=== PATIENT | male | born 2000 | race Caucasian/White ===

== ENCOUNTER 2019-12-09 20:24 | Emergency (ER) | payer OTHER ==
[~2019-12-09] VITALS: Ht 180.3 cm; Wt 74.8 kg
[~2019-12-09 20:24] MED LIST: CHLORDIAZEPOXID25 MG PO; KEPPRA500 MG PO; METHYLPHENIDATE54 MG PO; ONDANSETRON ODT8 MG PO
--- OUTSIDE RECORDS SUMMARY | 2019-12-09 20:26 | XMS ---
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 Care History Medical/Surgical 07/24/2018 [facility] - PATIENT TO ESTABLISH CARE WITH DR TURNER ON 08/26/18. - Patient is currently established with [facility]. If patient is seen in the ED during business hours. Please contact CHWs at [facility]. Care Recommendation: This patient has had 5 or more Emergency Department visits in the last 12 months.\T\nbsp; Patient requires education on the scope and purpose of the ED as an acute care provider not a Primary Care Provider and should not be utilized for chronic conditions.\T\nbsp; These are guidelines and the provider should exercise clinical judgment when providing care. E.D. VISIT COUNT (12 MO.) 1 MONSE Young TOTAL 1 NOTE: Visits indicate total known visits. ED/UCC VISIT TRACKING (12 MO.) 12/09/2019 20:24 [facility] [place] TYPE: Emergency COMPLAINT: - HEAD WOUND INPATIENT VISIT TRACKING (12 MO.) No inpatient visits to display in this time frame [email or web address]
[2019-12-09] MEDS ORDERED: CONCERTA18 MG PO (20:38)
== END 2019-12-09 21:09 | disposition home or self-care (01) ==
LOC: ED 20:24
DX: S01.01XA Laceration without foreign body of scalp, initial encounter (principal); F90.9 Attention-deficit hyperactivity disorder, unspecified type; F17.200 Nicotine dependence, unspecified, uncomplicated; Z79.899 Other long term (current) drug therapy; W22.8XXA Striking against or struck by other objects, initial encounter
CPT/HCPCS: 12001; 90471; 90715; 99282-25

== ENCOUNTER 2020-06-26 11:45 | Emergency (ER) | payer OTHER ==
[~2020-06-26] VITALS: Ht 177.8 cm; Wt 73.9 kg
[~2020-06-26 11:45] MED LIST changes: +CONCERTA18 MG PO
== END 2020-06-26 14:59 | disposition home or self-care (01) ==
LOC: ED 11:45
DX: F14.10 Cocaine abuse, uncomplicated (principal); F15.10 Other stimulant abuse, uncomplicated; F11.10 Opioid abuse, uncomplicated; F10.10 Alcohol abuse, uncomplicated; F17.200 Nicotine dependence, unspecified, uncomplicated; Z79.899 Other long term (current) drug therapy
CPT/HCPCS: 80053; 85025; 93971; 96374; 96375; 99285-25; J1885; J2060; J7030

== ENCOUNTER 2020-06-28 05:59 | Emergency (ER) | payer OTHER ==
[~2020-06-28] VITALS: Ht 170.2 cm; Wt 63.5 kg
--- OUTSIDE RECORDS SUMMARY | 2020-06-28 06:04 | XMS ---
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 Care History Medical/Surgical 07/24/2018 [facility] - PATIENT TO ESTABLISH CARE WITH DR TURNER ON 08/26/18. - Patient is currently established with [facility]. If patient is seen in the ED during business hours. Please contact CHWs at [facility]. Care Recommendation: This patient has had 5 [...] providing care. E.D. VISIT COUNT (12 MO.) 3 MONSE Young TOTAL 3 NOTE: Visits indicate total known visits. ED/UCC VISIT TRACKING (12 MO.) 06/28/2020 05:59 [facility] [place] TYPE: Emergency COMPLAINT: - DRUG USE 06/26/2020 11:46 [facility] [place] TYPE: Emergency COMPLAINT: - DRUG USE 12/09/2019 20:24 [facility] [place] TYPE: Emergency COMPLAINT: - HEAD INJURY DIAGNOSES: - Nicotine dependence, unspecified, uncomplicated - Striking against or struck by other objects, initial encounter - Other senior care (current) drug therapy - Laceration without foreign body of scalp, initial encounter - Attention-deficit hyperactivity disorder, unspecified type INPATIENT VISIT TRACKING (12 MO.) No inpatient visits to display in this time frame [email or web address]
== END 2020-06-28 09:41 | disposition home or self-care (01) ==
LOC: ED 05:59
DX: F15.129 Other stimulant abuse with intoxication, unspecified (principal)
CPT/HCPCS: 80053; 85025; 96374; 99284-25; J2060; J7030

== ENCOUNTER 2020-12-05 04:11 | Emergency (ER) | payer OTHER ==
[~2020-12-05] VITALS: Ht 170.2 cm; Wt 63.5 kg
[2020-12-05] MEDS ORDERED: PROMETHAZINE HC25 M1 PO (06:32)
== END 2020-12-05 13:27 | disposition home or self-care (01) ==
LOC: ED 04:11
DX: U07.1 COVID-19 (principal); K92.0 Hematemesis; F90.9 Attention-deficit hyperactivity disorder, unspecified type; Y90.0 Blood alcohol level of less than 20 mg/100 ml; Z79.899 Other long term (current) drug therapy
CPT/HCPCS: 74177; 80053; 83690; 85025; 85610; 85730; 86850; 86900; 86901; 96375; 99284-25; C9113; C9803; G0480; J1790; J2550; J2765; J7030; J7042; Q9967; U0003